=== PATIENT | male | born 1985 | race African-American/Black ===

== ENCOUNTER 2021-08-09 22:52 | Emergency (ER) | payer BC ==
[~2021-08-09] VITALS: Ht 170.2 cm; Wt 79.4 kg
[2021-08-09 23:00] VITALS: BP_SYST 147
[2021-08-10 00:10] LABS: BASOPHILS % (AUTO) 0.5 % (0.0-2.0); EOSINOPHILS # (AUTO) 0.1 K/uL (0.0-0.4); EOSINOPHILS % (AUTO) 1.2 % (0.0-4.0); HEMATOCRIT 53.1 % (36-54); HEMOGLOBIN 17.5 g/dL (14.0-18.0); LYMPHOCYTES # (AUTO) 1.3 K/uL (1.0-5.5); LYMPHOCYTES % (AUTO) 16.9 % (20.5-51.5); MEAN CORPUSCULAR HEMOGLOBIN 28 pg (27-31); MEAN CORPUSCULAR HGB CONC 33 % (32-36); MEAN CORPUSCULAR VOLUME 85 fL (79.0-98.0); MONOCYTES # (AUTO) 0.7 K/uL (0.0-1.0); MONOCYTES % (AUTO) 8.6 % (1.7-9.3); NEUTROPHILS # (AUTO) 5.7 K/uL (1.8-7.7); NEUTROPHILS % (AUTO) 72.8 % (40.0-70.0); PLATELET COUNT (AUTO) 326 K/uL (130-430); RED BLOOD CELL COUNT(AUTO) 6.26 MIL/uL (4.2-6.2); RED CELL DISTRIBUTION WIDTH 15.5 % (9.0-15.0); WHITE BLOOD COUNT (AUTO) 7.8 K/uL (4.8-10.8)
--- NOTE | 2021-08-10 00:27 | NUR ---
Patient to ER bed 3 to gown for evaluation. Side rails up. Report given to Gypsy BERGER.
--- NOTE | 2021-08-10 00:30 | NUR ---
Patient AOx4 ambulatory from home complaining of epigastric pain radiating to upper abdomen x 2 days with nausea, vomiting and diarrhea. Patient reports pain is a burning sensation 8/10. Patient denies any drugs or alcohol usage. Patient also recently had surgery to bilateral eyes 4 days ago with purple discoloration around eyes.
[2021-08-10 00:34] LABS: CALCIUM 9.5 mg/dL (8.4-11.0); CREATININE 1.3 mg/dL (0.55-1.30); POTASSIUM 3.9 mmol/L (3.5-5.1)
[2021-08-10 00:39] LABS: TOTAL BILIRUBIN 0.7 mg/dL (0.0-1.0)
--- NOTE | 2021-08-10 00:40 | NUR ---
ER at bedside examining patient.
--- NOTE | 2021-08-10 00:43 | NUR ---
patient had episode of non bloody frothy emesis. md notified
[2021-08-10] MEDS ORDERED: ONDANSETRON HCL 4 MG/2 ML VIAL IVP ONE (00:45)
[2021-08-10] MEDS ORDERED: NACL 0.9% 1,000 ML IV ONE (00:45)
[2021-08-10] MEDS ORDERED: MORPHINE 2 MG/ML INJ. SYRINGE IVP ONE (00:45)
[2021-08-10] MEDS ORDERED: PANTOPRAZOLE SODIUM 40 MG/VIAL (PROTONIX) IVP ONE (00:45)
--- NOTE | 2021-08-10 00:45 | NUR ---
# 18 gauge angiocath placed to rac. Use of asceptic technique. Opsite placed over site. Blood return noted. Flushed with 10 cc of normal saline. No evidence of infiltration noted. Patient tolerated well.
[2021-08-10] MEDS ORDERED: DIPHENHYDRAMINE INJ 50 MG/ML VIAL IVP ONE (01:15)
[2021-08-10] MEDS ORDERED: METOCLOPRAMIDE HCL 10 MG/2 ML VIAL IVP ONE (01:15)
--- NOTE | 2021-08-10 01:18 | NUR ---
patient had large amount of frothy emesis 100 ml. Patient reports feeling much better after vomiting. md notified. will hold reglan and benadryl at this time
--- NOTE | 2021-08-10 01:45 | NUR ---
patient resting comfortably at this time.
--- NOTE | 2021-08-10 03:22 | NUR ---
Patient resting quietly. No acute distress noted. Patient reports nausea has improved. Breathing even and unlabored. Will continue to monitor.
[2021-08-10] MEDS ORDERED: OMEP40CA20 PO (04:06)
[2021-08-10] MEDS ORDERED: ONDA-8 TL (04:07)
[2021-08-10 04:58] VITALS: BP_SYST 122
--- NOTE | 2021-08-10 04:58 | NUR ---
Patient given written and verbal discharge instructions and verbalizes understanding. ER MD discussed with patient the results and treatment provided. Patient in stable condition. ID arm band removed. IV catheter removed intact and dressing applied, no active bleeding. Rx of omeprazole and zofran given. Patient educated on pain management and to follow up with PMD. Pain Scale 0/10. Opportunity for questions provided and answered. Medication side effect fact sheet provided.
== END 2021-08-10 04:58 | disposition home or self-care (01) ==
LOC: SED 22:52
DX: R10.13 Epigastric pain (principal); R11.2 Nausea with vomiting, unspecified
CPT/HCPCS: 36415; 80053; 83690; 85025; 96361; 96374; 96375; 99284; C9113; J2270; J2405; J7030

== ENCOUNTER 2023-08-19 10:32 | Emergency (ER) | payer SELFPAY ==
[~2023-08-19] VITALS: Ht 175.3 cm; Wt 84.4 kg
[~2023-08-19 10:32] MED LIST: OMEP40CA20 PO; ONDA-8 TL
[2023-08-19 11:10] VITALS: BP_SYST 129; PULSE 79; RESP 18; TEMP 98; O2SAT 98
[2023-08-19 11:22] VITALS: BP_SYST 129; PULSE 79; RESP 18; TEMP 98; O2SAT 98
== END 2023-08-19 11:33 | disposition home or self-care (01) ==
LOC: SED 10:32
DX: Z48.00 Encounter for change or removal of nonsurgical wound dressing (principal); Z79.899 Other long term (current) drug therapy
CPT/HCPCS: 99282